=== PATIENT | male | born 2000 | race Caucasian/White ===

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

== ENCOUNTER 2020-08-11 20:13 | Emergency (ER) | payer SELFPAY ==
[~2020-08-11] VITALS: Ht 190.5 cm; Wt 72.7 kg
[2020-08-11 20:21] VITALS: TEMP 98.9
[2020-08-11 21:50] VITALS: BP 130/86; PULSE 72
== END 2020-08-11 21:51 | disposition home or self-care (01) ==
LOC: COL.ER 20:13
DX: S01.81XA Laceration without foreign body of other part of head, initial encounter (principal); Z88.1 Allergy status to other antibiotic agents; W01.10XA Fall on same level from slipping, tripping and stumbling with subsequent striking against unspecified object, initial encounter; Y92.59 Other trade areas as the place of occurrence of the external cause